=== PATIENT | female | born 1985 | race Asian ===

== ENCOUNTER 2019-04-18 11:30 | Emergency (ER) | payer OTHER ==
[~2019-04-18] VITALS: Ht 152.4 cm; Wt 57.5 kg
[2019-04-18 11:33] VITALS: BP 105/55; PULSE 64; RESP 18; Ht 152.4 cm; Wt 57.5 kg
--- NOTE | 2019-04-18 14:02 | ERD ---
ER Documentation Chief Complaint Chief Complaint vag bleed since wednesday 6 weeks HPI 34-year-old female presenting with vaginal bleeding x2 days. Patient states is with heavy bleeding. Patient is approximately 6 weeks and last period was February 17. Patient with had an ultrasound a month ago in outside hospital that was normal. G3, does not have an OB. Denies medical problems. NKDA. Surgical history denies. Social history denies ROS All systems reviewed and are negative except as per history of present illness. Allergies Allergies: Coded Allergies: No Known Allergy (Unverified , 04/18/19) PMhx/Soc Medical and Surgical Hx: pt denies Medical Hx, pt denies Surgical Hx Hx Alcohol Use: No Hx Substance Use: No Hx Tobacco Use: No Smoking Status: Never smoker FmHx Family History: No diabetes, No coronary disease, No other Physical Exam Vitals Vital Signs Date Temp Pulse Resp B/P (MAP) Pulse Ox O2 O2 Flow FiO2 Time Delivery Rate 04/18/19 98.5 64 18 105/55 98 11:33 (72) Physical Exam GENERAL: The patient is well-appearing, well-nourished, in no acute distress HEENT: Atraumatic. Conjunctivae are pink. Pupils equal, round, and reactive to light. There is no scleral icterus. Tympanic membranes clear bilaterally. Oropharynx clear. CHEST: Clear to auscultation bilaterally. There are no rales, wheezes or rhonc hi. HEART: Regular rate and rhythm. No murmurs, clicks, rubs or gallops. ABDOMEN:Soft, nontender and nondistended. Good bowel sounds. No rebound or guarding. No gross peritonitis. No gross organomegaly or masses. Result Diagram: 04/18/19 1218 Results 24 hrs Laboratory Tests Test 04/18/19 12:18 White Blood Count 11.0 10^3/ul Red Blood Count 4.23 10^6/ul Hemoglobin 13.1 g/dl Hematocrit 39.4 % Mean Corpuscular Volume 93.1 fl Mean Corpuscular Hemoglobin 31.0 pg Mean Corpuscular Hemoglobin Concent 33.2 g/dl Red Cell Distribution Width 13.2 % Platelet Count 239 10^3/UL Mean Platelet Volume 10.2 fl Immature Granulocytes % 0.400 % Neutrophils % 66.7 % Lymphocytes % 23.8 % Monocytes % 6.3 % Eosinophils % 2.3 % Basophils % 0.5 % Nucleated Red Blood Cells % 0.0 /100WBC Immature Granulocytes # 0.040 10^3/ul Neutrophils # 7.4 10^3/ul Lymphocytes # 2.6 10^3/ul Monocytes # 0.7 10^3/ul Eosinophils # 0.3 10^3/ul Basophils # 0.1 10^3/ul Nucleated Red Blood Cells # 0.0 10^3/ul Urine Color YELLOW Urine Clarity SLIGHTLY CLOUDY Urine pH 6.0 Urine Specific [place] 1.017 Urine Ketones NEGATIVE mg/dL Urine Nitrite NEGATIVE mg/dL Urine Bilirubin NEGATIVE mg/dL Urine Urobilinogen NEGATIVE mg/dL Urine Leukocyte Esterase TRACE [place]/ul Urine Microscopic RBC 1 /HPF Urine Microscopic WBC 3 /HPF Urine Squamous Epithelial Cells FEW /HPF Urine Bacteria FEW /HPF Urine Hemoglobin 1+ mg/dL Urine Glucose NEGATIVE mg/dL Urine Total Protein NEGATIVE mg/dl Beta HCG, Quantitative 703929.0 mIU/ml Procedures/MDM DIAGNOSTIC IMAGING REPORT Patient: CARLITO ISSA : 1985 Age: 34 Sex: F MR #: [id number] DOS: 04/18/19 0000 Ordering MD: JEAN-PAUL WHITFIELD PA-C Location: [facility] Room/Bed: PROCEDURE: US OB. CLINICAL INDICATION: Vaginal bleeding. TECHNIQUE: Multiple sonographic images of the pelvis were obtained utilizing a transabdominally technique. The images were reviewed on a PACS workstation. COMPARISON: None FINDINGS: The uterus is visualized and measures 9.7 x 5.3 x 7.3 cm. The endometrial echo is thickened and there is an intrauterine gestational sac. A yolk sac and pole is noted and crown-rump length, measures 1.9 cm . This corresponds to a mean gestational age of 8 weeks and 3 days. cardiac activity measures 165 bpm. The right ovary measures 2.3 x 1.4 x 1.9 cm. The left ovary measures 3.4 x 1.4 x 2.1 cm. There is no significant free fluid. IMPRESSION: 1. Single live intrauterine corresponding to a mean gestational age of 8 weeks and 3 days. cardiac activity measures 165 bpm. Estimated due date is November 25, 2019. 2. Both ovaries are within normal limits. No gross adnexal masses. No significant free fluid. MDM: 34-year-old female presents with vaginal bleeding. Patient's blood work is within normal limits and IUP is noted on ultrasound. I have low suspicion for ectopic . Patient does have vaginal bleeding and is at risk for mi scarriage however at this time appears to be within normal limits. No signs of infection in the urine patient does not require antibiotics. Patient is hemodynamically stable and Rh+. She does not require RhoGam. She is told to follow-up with OB and return if symptoms change or worsen. All questions answered at discharge Departure Diagnosis: Primary Impression: Threatened miscarriage Condition: Stable Patient Instructions: Bleeding During Early Referrals: [facility] YOU HAVE RECEIVED A MEDICAL SCREENING EXAM AND THE RESULTS INDICATE THAT YOU DO NOT HAVE A CONDITION THAT REQUIRES URGENT TREATMENT IN THE EMERGENCY DEPARTMENT. FURTHER EVALUATION AND TREATMENT OF YOUR CONDITION CAN WAIT UNTIL YOU ARE SEEN IN YOUR DOCTORS OFFICE WITHIN THE NEXT 1-2 DAYS. IT IS YOUR RESPONSIBILITY TO MAKE AN APPOINTMENT FOR FOLOW-UP CARE. IF YOU HAVE A PRIMARY DOCTOR --you should call your primary doctor and schedule an appointment IF YOU DO NOT HAVE A PRIMARY DOCTOR YOU CAN CALL OUR PHYSICIAN REFERRAL HOTLINE AT IF YOU CAN NOT AFFORD TO SEE A PHYSICIAN YOU CAN CHOSE FROM THE FOLLOWING [facility] [address] [facility] [address] [facility] [facility] [address] [facility] [facility] [address] [facility] [facility] [address] [facility]. [facility]. [address] Additional Instructions: FOLLOW UP WITH YOUR PRIMARY CARE PHYSICIAN TOMORROW.Return to this facility if you are not improving as expected. KANU WHITFIELD PA-C Apr 18, 2019 14:02
== END 2019-04-18 13:58 | disposition home or self-care (01) ==
LOC: FTE 11:30
DX: O20.0 Threatened abortion (principal); Z3A.08 8 weeks gestation of pregnancy
CPT/HCPCS: 36415; 76801; 81001; 84702; 85025; 86900; 86901; Z7502